=== PATIENT | male | born 1975 | race Two or more races ===

== ENCOUNTER 2021-06-29 17:56 | Emergency (ER) | payer BC, OTHER ==
[~2021-06-29] VITALS: Ht 185.4 cm; Wt 95.3 kg
[2021-06-29 22:43] VITALS: BP 122/82
== END 2021-06-29 22:45 | disposition home or self-care (01) ==
LOC: ER 17:56
DX: R20.0 Anesthesia of skin (principal); W17.89XA Other fall from one level to another, initial encounter; Y93.89 Activity, other specified; Y92.89 Other specified places as the place of occurrence of the external cause; Y99.8 Other external cause status
CPT/HCPCS: 70450; 72128; 72131